=== PATIENT | male | born 1950 | race Caucasian/White ===

== ENCOUNTER 2018-06-06 08:36 | Inpatient (IN) ==
--- NOTE | 2018-06-06 08:54 | ED ---
HPI General Chief Complaint: Respiratory Symptoms Stated Complaint: Resp Emergent Time Seen by Provider: 06/06/18 08:48 Source: patient and EMS Mode of arrival: EMS Limitations: no limitations History of Present Illness 68-year-old male patient with history of COPD, CHF, Lung cancer with right pleural effusion in the past, has a port,hypertension, previous intubation for respiratory distress, presents to the ER today for severe respiratory distress, had called EMS, and EMS found him tripoding with saturations of 76%. They gave him Solu-Medrol, nebulizers, and put him on BiPAP, gave him 1 dose of Lasix 40 IV. By the time he got to the ER, he reports feeling better. He has not been having fevers, or other symptoms. Related Data Home Medications Medication Instructions Recorded Confirmed Novolog Flexpen U-100 Insulin See Protocol SUB-Q PRN PRN 06/06/18 06/06/18 aspirin 325 mg PO DAILY 06/06/18 06/06/18 bumetanide 1 mg PO BID 06/06/18 06/06/18 calcitriol 0.5 mcg PO DAILY 06/06/18 06/06/18 febuxostat [Uloric] 80 mg PO DAILY 06/06/18 06/06/18 lorazepam 0.5 mg BUCCAL DAILY PRN 06/06/18 06/06/18 sennosides [senna] 8.6 mg PO BID PRN 06/06/18 06/06/18 spironolactone 50 mg PO DAILY 06/06/18 06/06/18 Allergies Allergy/AdvReac Type Severity Reaction Status Date / Time iodine Allergy Intermediate HIVES Unverified 05/11/17 23:51 potassium iodide Allergy Intermediate HIVES Unverified 05/11/17 23:51 povidone-iodine Allergy Intermediate HIVES Unverified 05/11/17 23:51 sodium iodide Allergy Intermediate HIVES Unverified 05/11/17 23:51 sodium iodide Allergy Intermediate HIVES Unverified 05/11/17 23:51 penicillin G Allergy Unknown Hives Unverified 05/11/17 23:51 Review of Systems ROS: all other systems reviewed are negative PMFSH History History Provided By: Patient Medical History Medical History COPD (chronic obstructive pulmonary disease) (Acute) Chest tube in place (Acute) Diabetes (Acute) Endotracheally intubated (Acute) Heart attack (Acute) Lung cancer (Acute) Social History Social History Substance History: Past History Second Hand Smoke Exposure: No Smoking Status: Former smoker Tobacco Type: Cigarettes How Often Do You Have a Drink Containing Alcohol: Never Recent Travel in [facility] within the Last 8 Weeks: No Recent Out of Country Travel within the Last 8 Weeks: No Exam Narrative Exam Narrative: GENERAL: Well-developed elderly white male patient currently in moderate Respiratory distress. Awake and alert and oriented 3. SKIN: Focused skin assessment warm/dry. HEAD: Atraumatic. Normocephalic. EYES: Pupils equal and round. No scleral icterus. No injection or drainage. ENT: No nasal bleeding or discharge. Mucous membranes pink and moist. NECK: Trachea midline. Positive JVD. CARDIOVASCULAR: Regular rate and rhythm. No murmur appreciated. RESPIRATORY: Moderate accessory muscle use. Decreased throughout bilaterally. Breath sounds equal bilaterally. GASTROINTESTINAL: Abdomen soft, non-tender, nondistended. Hepatic and splenic margins not palpable. MUSCULOSKELETAL: No obvious deformities. No clubbing. No cyanosis. The edema of the legs all the way up to the thighs, lower leg erythema and chronic venous stasis discoloration. NEUROLOGICAL: Awake and alert. No obvious cranial nerve deficits. Motor grossly within normal limits. Normal speech. PSYCHIATRIC: Appropriate mood and affect; insight and judgment normal. Course Initial Documented Vital Signs Temperature 99.1 F 06/06/18 08:42 Pulse Rate 105 H 06/06/18 08:42 Respiratory Rate 28 H 06/06/18 08:42 Blood Pressure 155/73 H 06/06/18 08:42 Pulse Oximetry 96 06/06/18 08:42 Last Documented Vital Signs Temperature 99.2 F 06/06/18 08:52 Pulse Rate 102 H 06/06/18 09:20 Respiratory Rate 26 H 06/06/18 09:20 Blood Pressure 177/104 H 06/06/18 09:20 Pulse Oximetry 91 L 06/06/18 09:20 Medical Decision Making MDM Narrative Medical decision making narrative: EKG shows tachycardia, likely secondary to the respiratory distress. He is feeling improved on arrival in the ER nitroglycerin was given in the ER, felt much better after that, saturations are better. He is on BiPAP in the ER. Chest x-ray shows a right-sided pleural effusion and pulmonary edema. At this point, my plan would be to admit him for further treatment for CHF exacerbation as well as poor pulmonary edema. Case is discussed with Dr. Germain who states he knows the patient well, states that he was supposed to be on hospice. I have discussed the fact that he was supposed to be on hospice with the patient and he states that his does not want own home on hospice. At this point, my plan would be to admit him to Dr. Germain., Who is agreeable to the admission. Medical Screen Exam Complete: Yes Emergency Medical Condition: Yes Differential Diagnosis Differential Diagnosis: CHF exacerbation versus pneumonia versus COPD exacerbation versus dysrhythmias Lab Data Lab results reviewed: Yes I reviewed the patient's lab results. Result diagrams: 06/06/18 08:57 06/06/18 08:57 Lab Results 06/06/18 06/06/18 Range/Units 08:57 08:57 WBC 11.1 H (4.0-11.0) th/mm3 RBC 3.50 L (4.50-5.90) mil/mm3 Hgb 9.0 L (13.0-17.0) gm/dL Hct 29.8 L (39.0-51.0) % MCV 85.0 (80.0-100.0) fL MCH 25.7 L (27.0-34.0) pg MCHC 30.2 L (32.0-36.0) % RDW 16.0 (11.6-17.2) % Plt Count 226 (150-450) th/mm3 MPV 7.6 (7.0-11.0) fL Neut % (Auto) 79.4 H (16.0-70.0) % Lymph % (Auto) 10.1 (9.0-44.0) % Mcdonald % (Auto) 9.8 H (0.0-8.0) % Eos % (Auto) 0.4 (0.0-4.0) % Baso % (Auto) 0.3 (0.0-2.0) % Neut # (Auto) 8.8 H (1.8-7.7) th/mm3 Lymph # (Auto) 1.1 (1.0-4.8) th/mm3 Mcdonald # (Auto) 1.1 H (0.0-0.9) th/mm3 Eos # (Auto) 0.0 (0.0-0.4) th/mm3 Baso # (Auto) 0.0 (0.0-0.2) th/mm3 WBC Differential . Differential Comment Auto diff final Sodium 140 (136-145) meq/L Potassium 4.5 (3.5-5.1) meq/L Chloride 87 L (98-107) meq/L Carbon Dioxide Greater than 45.0 H (21.0-32.0) meq/L Anion Gap 8 (5-15) meq/L BUN 20 H (7-18) mg/dL Creatinine 0.98 (0.60-1.30) mg/dL Estimated GFR 76 L (>89) mL/min Random Glucose 152 H (74-106) mg/dL Calcium 9.7 (8.5-10.1) mg/dL Total Bilirubin 0.6 (0.2-1.0) mg/dL AST 22 (15-37) U/L ALT 14 (12-78) U/L Alkaline Phosphatase 55 (45-117) U/L Troponin I Less than 0.02 L (0.02-0.05) ng/mL Total Protein 7.5 (6.4-8.2) g/dL Albumin 2.6 L (3.4-5.0) g/dL Imaging Data Attestation: I personally reviewed and interpreted this imaging study as follows : Radiologist's impression: Chest X-Ray 06/06/18 08:48 CONCLUSION: Right lung airspace disease with underlying vascular congestion and small to moderate pleural effusion ECG Data Attestation: I personally reviewed and interpreted this ECG as follows: Interpretation: EKG shows sinus tachycardia at a rate of 100 bpm. There are some T-wave inversions notable in 3. No acute ST elevations. Discharge Plan Discharge Details Anticipated Discharge Date: 06/06/18 Physicians Team ED Provider: Savi Reece Primary Care Provider: UNKNOWN, Rxs /Orders / Referrals /Forms Prescriptions: No Action sennosides [senna] 8.6 mg Tablet 8.6 mg PO BID PRN (Reason: Constipation) RF: 0 aspirin 325 mg Tablet 325 mg PO DAILY RF: 0 lorazepam 0.5 mg Tablet 0.5 mg BUCCAL DAILY PRN (Reason: Anxiety) RF: 0 bumetanide 1 mg Tablet 1 mg PO BID RF: 0 calcitriol 0.25 mcg Capsule 0.5 mcg PO DAILY RF: 0 spironolactone 50 mg Tablet 50 mg PO DAILY RF: 0 febuxostat [Uloric] 80 mg Tablet 80 mg PO DAILY RF: 0 Novolog Flexpen U-100 Insulin auto-injector Sub-Q PRN PRN (Reason: Glucose) RF: 0 Discharge Interventions Interventions: Vital Signs Last Done: 06/06/18 09:20 Status ED Status: Admitted Patient
--- NOTE | 2018-06-06 09:15 | XR ---
EXAM DATE: 06/06/2018 9:09 AM EDT AGE/SEX: 68 years / Male INDICATIONS: Short of breath with wheezing. CLINICAL DATA: This is the patient's initial encounter. Patient reports that signs and symptoms have been present for 1 day and indicates a pain score of 0/10. MEDICAL/SURGICAL HISTORY: Diabetes. Hypertension. Chronic obstructive pulmonary disease. None . COMPARISON: [facility] [place]. . FINDINGS: Diffuse airspace disease with underlying vascular congestion and pleural effusion are noted within th e right hemithorax. Left lung is relatively clear. Heart remains normal in size. CONCLUSION: Right lung airspace disease with underlying vascular congestion and small to moderate pleural effusio n Electronically signed by: Marco Gibson MD 06/06/2018 9:14 AM EDT
[2018-06-06 09:24] LABS: Baso % (Auto) 0.3 % (0.0-2.0); Eos % (Auto) 0.4 % (0.0-4.0); Hematocrit 29.8 % (39.0-51.0); Lymph # (Auto) 1.1 th/mm3 (1.0-4.8); Lymph % (Auto) 10.1 % (9.0-44.0); Mean Corpuscular Hemoglobin 25.7 pg (27.0-34.0); Mean Platelet Volume 7.6 fL (7.0-11.0); Mono # (Auto) 1.1 th/mm3 (0.0-0.9); Mono % (Auto) 9.8 % (0.0-8.0); Neut # (Auto) 8.8 th/mm3 (1.8-7.7); Neut % (Auto) 79.4 % (16.0-70.0); Platelet Count 226 th/mm3 (150-450); White Blood Count 11.1 th/mm3 (4.0-11.0)
[2018-06-06 09:31] LABS: Mean Corpuscular HGB Conc 30.2 % (32.0-36.0)
[2018-06-06 09:50] LABS: Alanine Aminotransferase 14 U/L (12-78); Alkaline Phosphatase 55 U/L (45-117); Total Protein 7.5 g/dL (6.4-8.2)
[2018-06-06 09:55] LABS: Albumin 2.6 g/dL (3.4-5.0); Anion Gap 8 meq/L (5-15); Aspartate Aminotransferase 22 U/L (15-37); Blood Urea Nitrogen 20 mg/dL (7-18); Calcium 9.7 mg/dL (8.5-10.1); Chloride 87 meq/L (98-107); Glomerular Filtration Rate 76 mL/min (>89); Glucose,Random 152 mg/dL (74-106); Potassium 4.5 meq/L (3.5-5.1); Sodium 140 meq/L (136-145)
[2018-06-06] MEDS ORDERED: Bisacodyl 10 MG Supp RECTAL PRN (10:52)
[2018-06-06] MEDS ORDERED: Dextrose 50% in Water 50 ML Vial IV.PUSH PRN (10:56)
[2018-06-06 13:19] LABS: ABG Base Excess 21.4 mmol/L (-2-2); ABG PCO2 94 mmHg (38-42); ABG PO2 74 mmHG (61-120)
[2018-06-06] MEDS ORDERED: Vancomycin Consult Pharmacy OTHER PRN (16:35)
[2018-06-06] MEDS ORDERED: hydrALAZINE HCl Inj 20 MG/ML Vial IV.PUSH PRN (16:41)
--- NOTE | 2018-06-06 16:49 | P.HPIM ---
History of Present Illness Primary Care Physician: No Primary Care Physician History of Present Illness: 68-year-old male with a history of COPD, CHF, CKD, diabetes mellitus, hypertension, non-small cell lung carcinoma with chronic right-sided malignant pleural effusion with Pleurx catheter in place who presents with a 2 day history of progressively worsening shortness of breath, chills. History is limited by shortness of breath. Patient reports chronic chest pain both substernal and right flank. Patient also reports 2 day history of right anterior knee pain worse with movement. Patient has marketed bilateral lower extremity swelling with venous stasis, however says this is chronic for him. He spends most of his time in a chair. Inpatient Certification: I certify that the inpatient services were ordered in accordance with Medicare regulations governing the order. This includes certification that hospital inpatient services are reasonable and necessary and in the case of services not specified as inpatient-only under 42 CFR 419.22(n), that they are appropriately provided as inpatient services in accordance to with the 2-midnight benchmark under 43 CFR 412.3(e) Estimated Total Length of Stay (Days): 2 Plans for Post Hospital Care: Not yet determined Review of Systems All other systems reviewed negative except as stated in HPI PMFSH - History History Provided By: Patient - Medical History Medical History: Medical History (Last Reviewed 06/06/18 @ 08:52 by Savi Reece MD) COPD (chronic obstructive pulmonary disease) Chest tube in place Diabetes Endotracheally intubated Heart attack Lung cancer - Surgical History Surgical History: Surgical History (Last Updated 06/06/18 @ 16:49 by Solis Germain MD) H/O cystoscopy History of lung biopsy - Family History Family History: Family History (Last Updated 06/06/18 @ 16:49 by Solis Germain MD) Father Cancer Mother Breast cancer - Tobacco History Second Hand Smoke Exposure: No Tobacco Use In Past 30 Days: No Smoking Status: Former smoker Tobacco Type: Cigarettes - Alcohol History How Often Do You Have a Drink Containing Alcohol: Never - Substance Use History Substance History: Past History - Travel History Recent Travel in the [place] Within the Last 8 Weeks: No Recent Travel Out of the Country Within the Last 8 Weeks: No - Immunization History Tetanus Immunization: Unsure Hx Influenza Vaccine This Season: No Medications and Allergies Active Medications: Active Medications Al Hydroxide/Mg Hydroxide (Milk Of Magnidalia Liq) 30 ml PO Q12H PRN PRN Reason: Mild Constipation Albuterol (Albuterol Neb (Prn)) 2.5 mg NEB Q2HR NEB PRN PRN Reason: SHORTNESS OF BREATH Albuterol (Duoneb Neb (Feroz)) 1 ampul NEB Q6HR NEB [facility] Last Admin: 06/06/18 16:18 Dose: 1 ampul Aspirin (Aspirin) 325 mg PO DAILY [facility] Bisacodyl (Dulcolax Supp) 10 mg RECTAL DAILY PRN PRN Reason: SEVERE CONSITIPATION Bumetanide (Bumex) 1 mg PO BID [facility] Calcitriol (Rocaltrol) 0.5 mcg PO DAILY [facility] Dextrose (D50w Vial) 50 ml IV.PUSH UNSCH PRN PRN Reason: PER HYPOGLYCEMIA PROTOCOL Glucagon (Glucagon Inj) 1 mg OTHER PRN PRN PRN Reason: for Hypoglycemia Protocol Hydralazine HCl (Apresoline Inj) 10 mg IV.PUSH Q30M PRN PRN Reason: SBP>160, DBP>90 Cefepime HCl 2,000 mg/ Sodium (Chloride) 100 mls @ 200 mls/hr IV.SIG Q8H [facility] Insulin Aspart (Novolog Insulin Correctional Sugar Inj) 0 unit SQ ACHS FEROZ; Protocol Lactulose (Lactulose Liq) 30 ml PO DAILY PRN PRN Reason: SEVERE CONSITIPATION Methylprednisolone Sodium Succinate (Solumedrol Inj) 40 mg IV.PUSH Q8HR [facility] Patient Own Medication ( Febuxostat [Uloric] 80 Mg) 0 each PO DAILY [facility] Pharmacy Profile Note (Vancomycin Consult Pharmacy) 1 each OTHER UNSCH PRN PRN Reason: Pharmacy to dose Sennosides (Senokot) 17.2 mg PO Q12H PRN PRN Reason: Moderate Constipation Sodium Chloride (Ns Flush) 2 ml IV.FLUSH BID [facility] Sodium Chloride (Ns Flush) 2 ml IV.FLUSH PRN PRN PRN Reason: FLUSH AFTER USING IV ACCESS Spironolactone (Aldactone) 50 mg PO DAILY [facility] Allergies Allergy/AdvReac Type Severity Reaction Status Date / Time iodine Allergy Intermediate HIVES Unverified 05/11/17 23:51 potassium iodide Allergy Intermediate HIVES Unverified 05/11/17 23:51 povidone-iodine Allergy Intermediate HIVES Unverified 05/11/17 23:51 sodium iodide Allergy Intermediate HIVES Unverified 05/11/17 23:51 sodium iodide Allergy Intermediate HIVES Unverified 05/11/17 23:51 penicillin G Allergy Unknown Hives Unverified 05/11/17 23:51 Home Medications Medication Instructions Recorded Confirmed Type Novolog Flexpen U-100 Insulin See Protocol SUB-Q PRN PRN 06/06/18 06/06/18 History aspirin 325 mg PO DAILY 06/06/18 06/06/18 History bumetanide 1 mg PO BID 06/06/18 06/06/18 History calcitriol 0.5 mcg PO DAILY 06/06/18 06/06/18 History febuxostat [Uloric] 80 mg PO DAILY 06/06/18 06/06/18 History lorazepam 0.5 mg BUCCAL DAILY PRN 06/06/18 06/06/18 History sennosides [senna] 8.6 mg PO BID PRN 06/06/18 06/06/18 History spironolactone 50 mg PO DAILY 06/06/18 06/06/18 History Exam Vital signs: Vital Signs 06/06/18 08:42 06/06/18 08:52 06/06/18 09:07 Temperature 99.1 F 99.2 F Pulse Rate 105 H 104 H Respiratory Rate 28 H 26 H Blood Pressure 155/73 H 155/73 H Pulse Oximetry 96 98 92 L 06/06/18 09:17 06/06/18 09:20 06/06/18 10:58 Temperature Pulse Rate 102 H 103 H Respiratory Rate 26 H 18 Blood Pressure 177/104 H 151/76 H Pulse Oximetry 95 91 L 93 L 06/06/18 13:16 06/06/18 13:24 06/06/18 16:20 Temperature 99.2 F Pulse Rate 106 H 114 H Respiratory Rate 18 28 H Blood Pressure 155/74 H Pulse Oximetry 94 L 97 06/06/18 16:22 Temperature Pulse Rate Respiratory Rate Blood Pressure Pulse Oximetry 90 L Intake & Output 06/05/18 06/06/18 06/06/18 18:59 06:59 18:59 Weight 141.067 kg Narrative: GENERAL: Patient sitting up in chair. Appears short of breath. SKIN: Warm and dry. HEAD: Atraumatic. Normocephalic. EYES: Pupils equal and round. No scleral icterus. No injection or drainage. ENT: No nasal bleeding or discharge. Mucous membranes pink and moist. NECK: Trachea midline. No JVD. CARDIOVASCULAR: Regular rate and rhythm. RESPIRATORY: Obese, with distant breath sounds. That said, decreased breath sounds right lung. Pleurx catheter without surrounding erythema in right chest GASTROINTESTINAL: Abdomen soft, non-tender, nondistended. Hepatic and splenic margins not palpable. MUSCULOSKELETAL: Extremities without clubbing, cyanosis, or edema. No obvious deformities. NEUROLOGICAL: Awake and alert. No obvious cranial nerve deficits. Motor grossly within normal limits. Five out of 5 muscle strength in the arms and legs. Normal speech. PSYCHIATRIC: Appropriate mood and affect; insight and judgment normal. Results - Labs CBC & Chem 7: 06/06/18 08:57 06/06/18 08:57 Labs: Short CBC 06/06/18 Range/Units 08:57 WBC 11.1 H (4.0-11.0) th/mm3 Hgb 9.0 L (13.0-17.0) gm/dL Hct 29.8 L (39.0-51.0) % Plt Count 226 (150-450) th/mm3 BMP 06/06/18 08:57 Sodium 140 Potassium 4.5 Chloride 87 L Carbon Dioxide Greater than 45.0 H BUN 20 H Creatinine 0.98 Calcium 9.7 Cardiac Enzymes 06/06/18 Range/Units 08:57 Troponin I Less than 0.02 L (0.02-0.05) ng/mL Liver Function 06/06/18 Range/Units 08:57 Total Bilirubin 0.6 (0.2-1.0) mg/dL AST 22 (15-37) U/L ALT 14 (12-78) U/L Alkaline Phosphatase 55 (45-117) U/L Albumin 2.6 L (3.4-5.0) g/dL - Imaging Impressions Chest X-Ray 06/06/18 08:48 CONCLUSION: Right lung airspace disease with underlying vascular congestion and small to moderate pleural effusion Caprini VTE Risk Assessment Caprini VTE Risk Assessment: Moderate/High Risk (score >= 2) Caprini Risk Assessment Model: Point Value = 1 Point Value = 2 Point Value = 3 Point Value = 5 Age 41-60 Minor surgery BMI > 25 kg/m2 Swollen legs Varicose veins or History of unexplained or recurrent spontaneous Oral contraceptives or hormone replacement Sepsis (< 1 month) Serious lung disease, including pneumonia (< 1 month) Abnormal pulmonary function Acute myocardial infarction Congestive heart failure (< 1 month) History of inflammatory bowel disease Medical patient at bed rest Age 61-74 Arthroscopic surgery Major open surgery (> 45 min) Laparoscopic surgery (> 45 min) Malignancy Confined to bed (> 72 hours) Immobilizing plaster cast Central venous access Age >= 75 History of VTE Family history of VTE Factor V Leiden Prothrombin [id number] Lupus anticoagulant Anticardiolipin antibodies Elevated serum homocysteine Heparin-induced thrombocytopenia Other congenital or acquired thrombophilia Stroke (< 1 month) Elective arthroplasty Hip, pelvis, or leg fracture Acute spinal cord injury (< 1 month) Prophylaxis Regimen: Total Risk Factor Score Risk Level Prophylaxis Regimen 0-1 Low Early ambulation 2 Moderate Order ONE of the following: *Sequential Compression Device (SCD) *Heparin 5000 units SQ BID 3-4 Higher Order ONE of the following medications: *Heparin 5000 units SQ TID *Enoxaparin/Lovenox 40 mg SQ daily (WT < 150 kg, CrCl > 30 mL/min) *Enoxaparin/Lovenox 30 mg SQ daily (WT < 150 kg, CrCl > 10-29 mL/min) *Enoxaparin/Lovenox 30 mg SQ BID (WT < 150 kg, CrCl > 30 mL/min) AND/OR *Sequential Compression Device (SCD) 5 or more Highest Order ONE of the following medications: *Heparin 5000 units SQ TID (Preferred with Epidurals) *Enoxaparin/Lovenox 40 mg SQ daily (WT < 150 kg, CrCl > 30 mL/min) *Enoxaparin/Lovenox 30 mg SQ daily (WT < 150 kg, CrCl > 10-29 mL/min) *Enoxaparin/Lovenox 30 mg SQ BID (WT < 150 kg, CrCl > 30 mL/min) AND *Sequential Compression Device (SCD) Assessment and Plan - Plan //NSCLC //Right-sided malignant pleural effusion with indwelling Pleurx catheter. //COPD exacerbation //Hypercapnic respiratory failure //YING //Possible healthcare associated pneumonia. = ABG with PCO2 in the 90s. = Right-sided malignant effusion noted on chest x-ray. = Solu-Medrol, duo nebs, incentive spirometry. = We will order for drainage of right-sided pleural effusion Via Pleurx catheter with fluid analysis. Patient does have tachycardia, tachypnea, borderline elevated white blood cell count will start on broad-spectrum antibiotics. Consult oncology and pulmonary. //Bilateral lower extremity edema with venous stasis cellulitis. BNP not elevated. Elevate the legs. Patient instructed. //NSCLC = patient follows with hospice, however is not "on" hospice = oncology consulted. //DM Dm diet, ISS /HTN. Blood pressure acceptable. Will order hydralazine as needed. //Right knee pain. Appears musculoskeletal. Imaging ordered and pending. //CKD.. Renal function acceptable. //Please see other medical record for patient with first name "Armen". Recent admission last month. Prophylaxis. Heparin. Discussed Condition With: Patient, nurse, ED physician.
--- NOTE | 2018-06-06 17:28 | XR ---
EXAM DATE: 06/06/2018 5:08 PM EDT AGE/SEX: 68 years / Male INDICATIONS: Pain. CLINICAL DATA: This is the patient's subsequent encounter. Patient reports that signs and symptoms h ave been present for 1 day and indicates a pain score of 2/10. MEDICAL/SURGICAL HISTORY: . Diabetes. Hypertension. Chronic obstructive pulmonary disease None . [place] [facility] [place] 04/11/[place]. . FINDINGS: Mild soft tissue swelling mild degenerative changes. There is loss of the collagen the medial compart ment. Trace joint effusion is evident. Fracture is not appreciated. Moderate vascular calcifications. CONCLUSION: Degenerative changes with trace joint effusion. No fracture. Sign report Electronically signed by: Marcel Leal MD 06/06/2018 5:27 PM EDT
[2018-06-06] MEDS: Insulin NovoLOG Aspart Correctional Sugar Inj SQ SCH ×3 (17:33→23:17)
--- NOTE | 2018-06-06 20:04 | ECG ---
Date Performed: 06/06/2018 Time Performed: 08:47:45 PTAGE: 68 years EKG: SINUS TACHYCARDIA POSSIBLE RIGHT VENTRICULAR CONDUCTION DELAY INFERIOR MYOCARDIAL INFARCTIO N Inferior T waves are new when compared to previous tracing. Clinical correlation is recommended ABN ORMAL ECG PREVIOUS TRACING : 04/11/2015 17.14 DOCTOR: Andrew Hodge Interpretating Date/Time 06/06/2018 20:03:06
[2018-06-06] MEDS: Vancomycin Inj 1,500 MG in Sodium Chlor 0.9% Inj 500 ML IV.SIG SCH (20:57)
[2018-06-06] MEDS: Heparin - SQ 10,000 UNITS/ML Vial SQ SCH (21:08)
[2018-06-06] MEDS: MethylPREDNISolone Sod Succinate Inj 40 MG/ML Vial IV.PUSH SCH ×2 (21:08→23:19)
[2018-06-06] MEDS: Budesonide-Formoterol 160/4.5 MCG 6 GM Inhaler INH SCH (21:08)
--- NOTE | 2018-06-06 23:15 | MB ---
cc: Kim Hunt MD DATE: 06/06/2018 REASON FOR CONSULTATION: Respiratory distress and pleural effusions. HISTORY OF PRESENT ILLNESS: This is a 68-year-old obese white male with a history for a non-small cell lung cancer, status post recurrent effusion on the right with PleurX catheter placement, who was admitted with progressive shortness of breath of 2-3 days' duration. The patient also had some fevers and chills. He had increased leg swelling and some upper abdominal and lower chest pains. The patient was seen in the ER. A chest x-ray was done which showed a moderate sized right effusion. He was then admitted and placed on oxygen via nasal cannula. He also has some knee pain and has had trouble ambulating and complains of cough with expectoration but no nausea or vomiting. PAST MEDICAL HISTORY: Past history has included diabetes mellitus, hypertension, COPD, chronic kidney disease, CHF, non-small cell lung CA, history of recurrent thoracentesis for a right effusion and a history of obesity. He has had respiratory failure in the past and has a chest catheter in place on the right side. He has had a lung biopsy and a cystoscopy in the past. HABITS: The patient smoked 1-2 packs per day for over 40 years. No significant alcohol intake. ALLERGIES: NO DRUG ALLERGIES ARE LISTED. FAMILY HISTORY: Essentially noncontributory. REVIEW OF SYSTEMS: The patient is unable to ambulate. He has leg swelling. He has joint pains. He has dizzy attacks. He has epigastric distress and urinary frequency and complains of a skin rash of the lower extremities and sleep apnea. PHYSICAL EXAMINATION: GENERAL: This is a very obese, elderly white male who is alert. Face is plethoric. He has 3+ leg edema. VITAL SIGNS: Blood pressure 140/80, pulse 75, respirations 16, temperature 98.2. HEENT: Head is normocephalic. Pupils are reactive and equal. Tongue is moist. Throat is injected. Nasal mucosa is clear. NECK: Supple. No bruits, thyroid enlargement or lymphadenopathy. CHEST: Distant breath sounds with crackles at the lung bases with diffuse wheezes throughout both lung farmer. HEART: The heart sounds are irregular. S1 and S2. The right chest has diminished breath sounds and a chest catheter is in place in the lateral axillary area. ABDOMEN: Very obese with no tenderness. Bowel sounds are active. No organomegaly. EXTREMITIES: Edema 3+ with pigmentation of the skin and stasis dermatitis and some tenderness of the lower extremities below the knee. There is a slight deformity of the right knee. The patient does move his extremities well. There is no calf tenderness noted. IMPRESSION: 1. Chronic obstructive pulmonary disease with acute exacerbation. 2. Probable right basilar pneumonia. 3. History of non-small cell lung carcinoma with recurrent right effusion. 4. Degenerative arthritis. 5. Obstructive sleep apnea. PLAN: The patient will be maintained on antibiotic coverage including cefepime 2 grams IV q.8 hours and also vancomycin 1 gram daily. He will be placed on Solu-Medrol 40 mg IV q.8 hours, nebulized DuoNeb solution every 4 hours, oxygen nasal cannula at 4 liters, BiPAP at night set at 15/5 cm and 28%. Diuresis to be continued with Bumex 1 mg b.i.d. The PleurX catheter will be drained by radiology on a weekly basis. Thank you, Dr. Germain, for this consultation. VPatrick Hunt MD VJD/rachel , 07:41 PM , 07:54 PM
[2018-06-07 04:22] LABS: Baso % (Auto) 0.1 % (0.0-2.0); Hematocrit 28.3 % (39.0-51.0); Hemoglobin 8.9 gm/dL (13.0-17.0); Lymph # (Auto) 0.5 th/mm3 (1.0-4.8); Lymph % (Auto) 5.3 % (9.0-44.0); Mean Corpuscular HGB Conc 31.3 % (32.0-36.0); Mean Corpuscular Hemoglobin 26.2 pg (27.0-34.0); Mean Corpuscular Volume 83.6 fL (80.0-100.0); Mean Platelet Volume 7.8 fL (7.0-11.0); Mono # (Auto) 0.3 th/mm3 (0.0-0.9); Mono % (Auto) 3.3 % (0.0-8.0); Neut # (Auto) 8.5 th/mm3 (1.8-7.7); Neut % (Auto) 91.3 % (16.0-70.0); Platelet Count 222 th/mm3 (150-450); Red Blood Count 3.39 mil/mm3 (4.50-5.90); Red Cell Distribution Width 15.8 % (11.6-17.2); White Blood Count 9.3 th/mm3 (4.0-11.0)
[2018-06-07 04:39] LABS: Alanine Aminotransferase 17 U/L (12-78); Albumin 2.6 g/dL (3.4-5.0); Alkaline Phosphatase 54 U/L (45-117); Anion Gap 7 meq/L (5-15); Aspartate Aminotransferase 15 U/L (15-37); Blood Urea Nitrogen 30 mg/dL (7-18); Calcium 9.4 mg/dL (8.5-10.1); Chloride 86 meq/L (98-107); Glomerular Filtration Rate 57 mL/min (>89); Glucose,Random 260 mg/dL (74-106); Potassium 4.4 meq/L (3.5-5.1); Sodium 138 meq/L (136-145); Total Protein 7.6 g/dL (6.4-8.2)
[2018-06-07] MEDS: MethylPREDNISolone Sod Succinate Inj 40 MG/ML Vial IV.PUSH SCH ×2 (06:29→13:18)
--- NOTE | 2018-06-07 08:02 | P.CON ---
History of Present Illness Service: Hematology/oncology Consult date: 06/07/18 Requesting Physician: Solis Germain Reason for Consult: Metastatic adenocarcinoma of the lung. Primary Care Provider: No Primary Care Physician Chief Complaint: Difficulty breathing History of Present Illness: Mr. Marquez is a very pleasant 68-year-old man who is known to me from previous hospital admissions. The patient was diagnosed earlier this summer with metastatic adenocarcinoma of the lung, the primary tumors involve the right lung with extensive pleural-based metastatic deposits. He had recurrent large volume pleural effusions and for this he eventually underwent Pleurx catheter placement on the right side. The patient's tumor has 0% PDL-1 expression. Given his poor overall ECOG performance status and multiple medical comorbid conditions including diabetes, CHF, chronic kidney disease he was advised comfort oriented care/palliative care. After his most recent hospitalization in April 2018 he was discharged home with hospice. The patient reports having been doing reasonably well at home over the past few weeks, he tells me he has been able to ambulate around the house, he tells me his pain is reasonably well-controlled and had been reconsidering his decision to pursue hospice. He tells me he thinks a great deal about pursuing disease directed therapy including systemic chemotherapy. The patient presented to [facility] on 06/06/2018 with complaints of progressive shortness of breath. He was scheduled to meet with me at my [facility] on 06/06/2018 but was unable to keep that appointment. He tells me he made that appointment to discuss therapeutic interventions. Subjectively; at this time the patient reports his breathing is improved, he has been on corticosteroids and empiric antibiotic therapy. I have been asked to see the patient in consultation to discuss treatment interventions. Review of Systems Constitutional: Reports daytime sleepiness, Reports fatigue, Reports lack of energy, Reports weakness, Reports weight gain, Denies anorexia, Denies chills Eyes: Denies change in vision, Denies double vision Ears, Nose, Mouth, and Throat: Reports poor balance, Denies abnormal hearing Cardiovascular: Reports chest pain, Reports chest pain at rest (Right-sided pleuritic chest pain.), Reports leg swelling, Reports shortness of breath with activity, Reports shortness of breath when lying down, Denies leg sores Respiratory: Reports cough, Reports pain with cough, Reports shortness of breath , Reports shortness of breath with activity, Reports snoring, Reports wheezing, Denies coughing up blood Gastrointestinal: Denies abdominal pain, Denies bright, red blood in stools, Denies vomiting Genitourinary: Denies blood in urine Musculoskeletal: Reports back pain, Denies abnormal walking Skin/Breast: Denies acne Neurologic: Denies abnormal hearing Psychiatric: Denies abnormal sleep pattern Endocrine: Denies cold intolerance Hematologic/Lymphatic: Denies easy bleeding Allergic/Immunologic: Denies GI upset with certain foods PMFSH - History History Provided By: Patient - Medical History Medical History: Medical History (Last Updated 06/07/18 @ 07:56 by Khanh Reeves MD) COPD (chronic obstructive pulmonary disease) Chest tube in place Diabetes Endotracheally intubated Heart attack Metastatic adenocarcinoma to lung Morbid obesity - Surgical History Surgical History: Surgical History (Last Reviewed 06/07/18 @ 07:56 by Khanh Reeves MD) H/O cystoscopy History of lung biopsy - Family History Family History: Family History (Last Reviewed 06/07/18 @ 07:56 by Khanh Reeves MD) Father Cancer Mother Breast cancer - Social History I have reviewed the patient's Social History: Yes - Tobacco History Second Hand Smoke Exposure: No Tobacco Use In Past 30 Days: No Smoking Status: Former smoker Tobacco Type: Cigarettes - Alcohol History How Often Do You Have a Drink Containing Alcohol: Never - Substance Use History Substance History: Past History - Travel History Recent Travel in the [place] Within the Last 8 Weeks: No Recent Travel Out of the Country Within the Last 8 Weeks: No - Immunization History Tetanus Immunization: Unsure Hx Influenza Vaccine This Season: No Medications and Allergies Active Medications: Active Medications Al Hydroxide/Mg Hydroxide (Milk Of Luna Erickson) 30 ml PO Q12H PRN PRN Reason: Mild Constipation Albuterol (Albuterol Neb (Prn)) 2.5 mg NEB Q2HR NEB PRN PRN Reason: SHORTNESS OF BREATH Last Admin: 06/07/18 01:39 Dose: 2.5 mg Albuterol (Duoneb Neb (Feroz)) 1 ampul NEB Q6HR NEB [facility] Last Admin: 06/07/18 03:25 Dose: 1 ampul Aspirin (Aspirin) 325 mg PO DAILY [facility] Bisacodyl (Dulcolax Supp) 10 mg RECTAL DAILY PRN PRN Reason: SEVERE CONSITIPATION Budesonide/Formoterol Fumarate (Symbicort 160/4.5 Mcg Inh) 2 puff INH BID [facility] Last Admin: 06/06/18 21:08 Dose: Not Given Bumetanide (Bumex) 1 mg PO BID [facility] Last Admin: 06/06/18 21:08 Dose: 1 mg Calcitriol (Rocaltrol) 0.5 mcg PO DAILY [facility] Dextrose (D50w Vial) 50 ml IV.PUSH UNSCH PRN PRN Reason: PER HYPOGLYCEMIA PROTOCOL Glucagon (Glucagon Inj) 1 mg OTHER PRN PRN PRN Reason: for Hypoglycemia Protocol Heparin Sodium (Porcine) (Heparin Inj) 5,000 units SQ Q12HR [facility] Last Admin: 06/06/18 21:08 Dose: 5,000 units Hydralazine HCl (Apresoline Inj) 10 mg IV.PUSH Q30M PRN PRN Reason: SBP>160, DBP>90 Cefepime HCl 2,000 mg/ Sodium (Chloride) 100 mls @ 200 mls/hr IV.SIG Q8H [facility] Last Infusion: 06/07/18 05:36 Dose: Infused Vancomycin HCl 1,500 mg/ (Sodium Chloride) 515 mls @ 250 mls/hr IV.SIG Q12H [facility] Last Infusion: 06/07/18 00:29 Dose: Infused Insulin Aspart (Novolog Insulin Correctional Sugar Inj) 0 unit SQ ACHS [facility]; Protocol Last Admin: 06/06/18 23:17 Dose: Not Given Lactulose (Lactulose Liq) 30 ml PO DAILY PRN PRN Reason: SEVERE CONSITIPATION Methylprednisolone Sodium Succinate (Solumedrol Inj) 40 mg IV.PUSH Q8HR [facility] Last Admin: 06/07/18 06:29 Dose: 40 mg Miscellaneous Information ([facility] Ordered Lab Info) 0 each OTHER ONCE ONE Stop: 06/08/18 08:46 Patient Own Medication ( Febuxostat [Uloric] 80 Mg) 0 each PO DAILY [facility] Pharmacy Profile Note (Vancomycin Consult Pharmacy) 1 each OTHER UNSCH PRN PRN Reason: Pharmacy to dose Sennosides (Senokot) 17.2 mg PO Q12H PRN PRN Reason: Moderate Constipation Sodium Chloride (Ns Flush) 2 ml IV.FLUSH BID [facility] Last Admin: 06/06/18 21:08 Dose: 2 ml Sodium Chloride (Ns Flush) 2 ml IV.FLUSH PRN PRN PRN Reason: FLUSH AFTER USING IV ACCESS Spironolactone (Aldactone) 50 mg PO DAILY [facility] Allergies Allergy/AdvReac Type Severity Reaction Status Date / Time iodine Allergy Intermediate HIVES Unverified 05/11/17 23:51 potassium iodide Allergy Intermediate HIVES Unverified 05/11/17 23:51 povidone-iodine Allergy Intermediate HIVES Unverified 05/11/17 23:51 sodium iodide Allergy Intermediate HIVES Unverified 05/11/17 23:51 sodium iodide Allergy Intermediate HIVES Unverified 05/11/17 23:51 penicillin G Allergy Unknown Hives Unverified 05/11/17 23:51 Home Medications Medication Instructions Recorded Confirmed Type Novolog Flexpen U-100 Insulin See Protocol SUB-Q PRN PRN 06/06/18 06/06/18 History aspirin 325 mg PO DAILY 06/06/18 06/06/18 History bumetanide 1 mg PO BID 06/06/18 06/06/18 History calcitriol 0.5 mcg PO DAILY 06/06/18 06/06/18 History febuxostat [Uloric] 80 mg PO DAILY 06/06/18 06/06/18 History lorazepam 0.5 mg BUCCAL DAILY PRN 06/06/18 06/06/18 History sennosides [senna] 8.6 mg PO BID PRN 06/06/18 06/06/18 History spironolactone 50 mg PO DAILY 06/06/18 06/06/18 History Physical Exam Vital signs: Vital Signs 06/06/18 08:42 06/06/18 08:52 06/06/18 09:07 Temperature 99.1 F 99.2 F Pulse Rate 105 H 104 H Respiratory Rate 28 H 26 H Blood Pressure 155/73 H 155/73 H Pulse Oximetry 96 98 92 L 06/06/18 09:17 06/06/18 09:20 06/06/18 10:58 Temperature Pulse Rate 102 H 103 H Respiratory Rate 26 H 18 Blood Pressure 177/104 H 151/76 H Pulse Oximetry 95 91 L 93 L 06/06/18 13:16 06/06/18 13:24 06/06/18 16:00 Temperature 99.2 F 99.1 F Pulse Rate 106 H 114 H Respiratory Rate 18 18 Blood Pressure 155/74 H 155/73 H Pulse Oximetry 94 L 97 97 06/06/18 16:20 06/06/18 16:22 06/06/18 19:00 Temperature Pulse Rate 114 H 106 H Respiratory Rate 28 H Blood Pressure Pulse Oximetry 90 L 06/06/18 20:00 06/06/18 20:25 06/06/18 20:30 Temperature 98.8 F Pulse Rate 100 H 104 H Respiratory Rate 22 14 Blood Pressure 142/70 H Pulse Oximetry 90 L 93 L 06/06/18 21:00 06/06/18 22:00 06/06/18 23:00 Temperature Pulse Rate 99 H 100 H 87 Respiratory Rate Blood Pressure Pulse Oximetry 06/07/18 00:00 06/07/18 01:00 06/07/18 01:36 Temperature 97.9 F Pulse Rate 86 86 Respiratory Rate 17 Blood Pressure 157/79 H Pulse Oximetry 98 97 06/07/18 01:37 06/07/18 02:00 06/07/18 03:00 Temperature Pulse Rate 70 76 62 Respiratory Rate 18 Blood Pressure Pulse Oximetry 06/07/18 03:25 06/07/18 04:00 06/07/18 05:00 Temperature 97.4 F L Pulse Rate 59 L 86 80 Respiratory Rate 15 20 Blood Pressure 145/89 H Pulse Oximetry 99 06/07/18 06:00 06/07/18 06:08 Temperature Pulse Rate 80 Respiratory Rate Blood Pressure Pulse Oximetry 98 Intake & Output 06/06/18 06/07/18 06/07/18 18:59 06:59 18:59 Intake Total 720 / 720 1385 / 1385 Output Total 700 / 700 500 / 500 Balance 885 / 885 Weight 141.067 kg 140 kg Intake: IV 665 / 665 Maxipime Inj 2,000 MG In NS Inj 190 / 190 100 ML @ 200 mls/hr IV.SIG Q8H [facility] Rx#:[id number] Vancomycin Inj 1,500 MG In NS 475 / 475 Inj 500 ML @ 250 mls/hr IV.SIG Q12H [facility] Rx#:[id number] Oral 720 / 720 720 / 720 Output: Urine 700 / 700 500 / 500 Other: # Bowel Movements 0 - Constitutional no acute distress - Routine HEENT Exam Head: Absent: normocephalic Eye: Present: EOMI, PERRL - Routine Neck Exam Present: supple. Absent: full ROM, JVD - Routine Respiratory Exam Present: diminished air movement (Over the right base. Pleurx catheter in place on the right side. Prolonged expiratory phase. Scattered rhonchi and crackles.). Absent: accessory muscle use - Routine Cardiovascular Exam Present: RRR, S1, S2. Absent: murmur, gallop, rubs, S3, S4 - Routine Abdominal Exam Present: soft. Absent: distended - Routine Extremities Exam Present: edema (Bilateral lower extremities with skin changes consistent with chronic venous stasis.) - Routine Skin Exam Present: intact - Routine Neurological Exam Present: alert, oriented X3, CN II-XII intact. Absent: sensory deficit, motor deficit - Detailed Neurological Exam: Coma Scale Eye Opening: Spontaneous - Routine Psychiatric Exam Present: normal affect Assessment and Plan - Plan Mr. Marquez is a 5-year-old man with a diagnosis of metastatic adenocarcinoma of lung primary, PDL 1 expression is 0%. He has extensive disease burden involving the right hemithorax with pleural-based metastases. He has recurrent pleural effusions as well. Overall his ECOG performance status is at best 3. He is a suboptimal candidate for aggressive disease directed systemic chemotherapy given the high risk of treatment-related adverse effects. I had in the past discussed disease directed therapy with the patient versus palliative/comfort oriented care including hospice. He had elected for hospice at the time of most recent discharge from the hospital. He tells me he is reconsidering his choices actively at this time. I have informed the patient that if he chooses to pursue systemic chemotherapy there would be significant risk including increased risk of infections, cytopenias as well as potentially limited benefits. If he chooses to pursue systemic chemotherapy I would advise transferring him to the oncology unit and treating him in the inpatient setting at least initially. The patient tells me he wishes to discuss his options again with his . He tells me he is leaning towards hospice but will make his final decision known to us later today. Recommendations: 1. Metastatic lung carcinoma: The patient is considering to pursue systemic therapy, should he wish to pursue systemic chemotherapy I would advise a modified dosing of carboplatin and Taxol. This can be delivered in the inpatient setting. He is not certain he wishes to pursue treatment at this time but will let us know. If he wishes to pursue comfort oriented care I would advise involving palliative care and hospice. For the time being continue supportive care with corticosteroids and empiric antibiotic therapy. Oncology will follow with you.
[2018-06-07] MEDS ORDERED: FEBUXOSTAT 80 MG PO SCH (09:00)
[2018-06-07] MEDS: Calcitriol 0.25 MCG Capsule PO SCH (09:16)
[2018-06-07] MEDS: Insulin NovoLOG Aspart Correctional Sugar Inj SQ SCH ×4 (09:16→21:35)
[2018-06-07] MEDS: Aspirin 325 MG Tablet PO SCH (09:16)
[2018-06-07] MEDS: Heparin - SQ 10,000 UNITS/ML Vial SQ SCH ×2 (09:16→21:37)
[2018-06-07] MEDS: Spironolactone 50 MG Tablet PO SCH (09:16)
[2018-06-07] MEDS: Vancomycin Inj 1,500 MG in Sodium Chlor 0.9% Inj 500 ML IV.SIG SCH (09:17)
[2018-06-07] MEDS: Budesonide-Formoterol 160/4.5 MCG 6 GM Inhaler INH SCH ×2 (09:17→21:37)
[2018-06-07] MEDS ORDERED: Insulin Detemir Inj 1,000 UNIT/10 ML Vial SQ ONE (13:00)
[2018-06-07] MEDS ORDERED: Vancomycin Consult Pharmacy OTHER SCH (15:00)
--- NOTE | 2018-06-07 16:02 | P.PNIM ---
Subjective Interval history: Patient says he is breathing a little better today. Reports shortness of breath somewhat improved. Denies any chest pain. Physical Exam Vital signs: Vital Signs 06/06/18 16:00 06/06/18 16:20 06/06/18 16:22 Temperature 99.1 F Pulse Rate 114 H 114 H Respiratory Rate 18 28 H Blood Pressure 155/73 H Pulse Oximetry 97 90 L 06/06/18 19:00 06/06/18 20:00 06/06/18 20:25 Temperature 98.8 F Pulse Rate 106 H 100 H Respiratory Rate 22 Blood Pressure 142/70 H Pulse Oximetry 90 L 93 L 06/06/18 20:30 06/06/18 21:00 06/06/18 22:00 Temperature Pulse Rate 104 H 99 H 100 H Respiratory Rate 14 Blood Pressure Pulse Oximetry 06/06/18 23:00 06/07/18 00:00 06/07/18 01:00 Temperature 97.9 F Pulse Rate 87 86 86 Respiratory Rate 17 Blood Pressure 157/79 H Pulse Oximetry 98 06/07/18 01:36 06/07/18 01:37 06/07/18 02:00 Temperature Pulse Rate 70 76 Respiratory Rate 18 Blood Pressure Pulse Oximetry 97 06/07/18 03:00 06/07/18 03:25 06/07/18 04:00 Temperature 97.4 F L Pulse Rate 62 59 L 86 Respiratory Rate 15 20 Blood Pressure 145/89 H Pulse Oximetry 99 06/07/18 05:00 06/07/18 06:00 06/07/18 06:08 Temperature Pulse Rate 80 80 Respiratory Rate Blood Pressure Pulse Oximetry 98 06/07/18 07:00 06/07/18 08:00 06/07/18 09:00 Temperature 97.9 F Pulse Rate 93 H 89 98 H Respiratory Rate 18 Blood Pressure 149/76 H Pulse Oximetry 94 L 06/07/18 09:55 06/07/18 10:00 06/07/18 11:00 Temperature Pulse Rate 98 H 95 H 92 H Respiratory Rate 16 Blood Pressure Pulse Oximetry 96 06/07/18 12:00 06/07/18 13:00 06/07/18 15:53 Temperature 98 F Pulse Rate 92 H 66 66 Respiratory Rate 20 20 Blood Pressure 157/70 H Pulse Oximetry 92 L 92 L Intake & Output 06/06/18 06/07/1806/07/18 18:59 06:59 18:59 Intake Total 720 / 720 1385 / 1385 615 / 615 Output Total 700 / 700 500 / 500 Balance 885 / 885 615 / 615 Weight 141.067 kg 140 kg Intake: IV 665 / 665 615 / 615 Maxipime Inj 2,000 MG In NS Inj 190 / 190 100 / 100 100 ML @ 200 mls/hr IV.SIG Q8H [facility] Rx#:[id number] Vancomycin Inj 1,500 MG In NS 475 / 475 515 / 515 Inj 500 ML @ 250 mls/hr IV.SIG Q12H [facility] Rx#:[id number] Oral 720 / 720 720 / 720 Output: Urine 700 / 700 500 / 500 Other: # Bowel Movements 0 Narrative: GENERAL: Patient sitting up on edge of bed. Appears to be breathing more comfortably than yesterday. SKIN: Warm and dry. HEAD: Normocephalic. EYES: No scleral icterus. No injection or drainage. NECK: Supple, trachea midline. No JVD. CARDIOVASCULAR: Regular rate and rhythm without murmurs, gallops, or rubs. RESPIRATORY: Breath sounds decreased on the right. Pleurx catheter in place on the right.. No accessory muscle use. GASTROINTESTINAL: Abdomen soft, non-tender, nondistended. MUSCULOSKELETAL: No cyanosis. Still with +3 edema as yesterday, slightly improved. BACK: Nontender without obvious deformity. No CVA tenderness. Results - Labs CBC & Chem 7: 06/07/18 03:50 06/07/18 03:50 Laboratory Results - last 24 hr 06/06/18 06/06/18 06/06/18 08:57 17:20 21:03 WBC RBC Hgb Hct MCV MCH MCHC RDW Plt Count MPV Neut % (Auto) Lymph % (Auto) [place] % (Auto) Eos % (Auto) Baso % (Auto) Neut # (Auto) Lymph # (Auto) [place] # (Auto) Eos # (Auto) Baso # (Auto) WBC Differential Differential Comment Sodium Potassium Chloride Carbon Dioxide Anion Gap BUN Creatinine Estimated GFR POC Glucose 368 H 368 H Random Glucose Calcium Total Bilirubin AST ALT Alkaline Phosphatase B-Natriuretic Peptide 33 Total Protein Albumin 06/07/18 06/07/18 06/07/18 03:50 03:50 08:08 WBC 9.3 RBC 3.39 L Hgb 8.9 L Hct 28.3 L MCV 83.6 MCH 26.2 L MCHC 31.3 L RDW 15.8 Plt Count 222 MPV 7.8 Neut % (Auto) 91.3 H Lymph % (Auto) 5.3 L [place] % (Auto) 3.3 Eos % (Auto) 0.0 Baso % (Auto) 0.1 Neut # (Auto) 8.5 H Lymph # (Auto) 0.5 L [place] # (Auto) 0.3 Eos # (Auto) 0.0 Baso # (Auto) 0.0 WBC Differential . Differential Comment Auto diff final Sodium 138 Potassium 4.4 Chloride 86 L Carbon Dioxide Greater than 45.0 H Anion Gap 7 BUN 30 H Creatinine 1.25 Estimated GFR 57 L POC Glucose 311 H Random Glucose 260 H D Calcium 9.4 Total Bilirubin 0.4 AST 15 ALT 17 Alkaline Phosphatase 54 B-Natriuretic Peptide Total Protein 7.6 Albumin 2.6 L 06/07/18 13:14 WBC RBC Hgb Hct MCV MCH MCHC RDW Plt Count MPV Neut % (Auto) Lymph % (Auto) [place] % (Auto) Eos % (Auto) Baso % (Auto) Neut # (Auto) Lymph # (Auto) [place] # (Auto) Eos # (Auto) Baso # (Auto) WBC Differential Differential Comment Sodium Potassium Chloride Carbon Dioxide Anion Gap BUN Creatinine Estimated GFR POC Glucose 467 H* Random Glucose Calcium Total Bilirubin AST ALT Alkaline Phosphatase B-Natriuretic Peptide Total Protein Albumin - Imaging Impressions Knee X-Ray 06/06/18 00:00 CONCLUSION: Degenerative changes with trace joint effusion. No fracture. Sign report Assessment and Plan - Plan //NSCLC //Right-sided malignant pleural effusion with indwelling Pleurx catheter. //COPD exacerbation //Hypercapnic respiratory failure //YING //Possible healthcare associated pneumonia. = ABG with PCO2 in the 90s. = Right-sided malignant effusion noted on chest x-ray. = Solu-Medrol, duo nebs, incentive spirometry. = We will order for drainage of right-sided pleural effusion Via Pleurx catheter with fluid analysis. Patient does have tachycardia, tachypnea, borderline elevated white blood cell count will start on broad-spectrum antibiotics. Consult oncology and pulmonary. = 06/07. Respiratory status proving. Will taper down to by mouth prednisone. Continue IV antibiotics. Pulmonology following. Will drain right sided pleural effusion. Discussed with nursing. Appreciate nursing assistance. //Bilateral lower extremity edema with venous stasis cellulitis. BNP not elevated. Elevate the legs. Patient instructed. = 06/07. Appears slightly improved. //NSCLC = patient follows with hospice, however is not "on" hospice = oncology following. Appreciate assistance. Patient still deciding if he wants to do palliative chemotherapy. //DM Dm diet, ISS /HTN. Blood pressure acceptable. Will order hydralazine as needed. //Right knee pain. Appears musculoskeletal. Imaging ordered and pending. //CKD.. Renal function acceptable. //Please see other medical record for patient with first name "Armen". Recent admission last month. Prophylaxis. Heparin. Discussed Condition With: Patient, nurse, pulmonology. Discharge Planning: Home with home health, possibly hospice. PT consulted. We will need oncology and pulmonology clearance.
--- NOTE | 2018-06-07 19:14 | P.PN ---
Subjective Interval history: Has SOB and a cough. no fever. Had been seen by Dr Reeves and chemotherapy may be offered. O2 sat 95 on 3 L Physical Exam Vital signs: Vital Signs 06/06/18 20:00 06/06/18 20:25 06/06/18 20:30 Temperature 98.8 F Pulse Rate 100 H 104 H Respiratory Rate 22 14 Blood Pressure 142/70 H Pulse Oximetry 90 L 93 L 06/06/18 21:00 06/06/18 22:00 06/06/18 23:00 Temperature Pulse Rate 99 H 100 H 87 Respiratory Rate Blood Pressure Pulse Oximetry 06/07/18 00:00 06/07/18 01:00 06/07/18 01:36 Temperature 97.9 F Pulse Rate 86 86 Respiratory Rate 17 Blood Pressure 157/79 H Pulse Oximetry 98 97 06/07/18 01:37 06/07/18 02:00 06/07/18 03:00 Temperature Pulse Rate 70 76 62 Respiratory Rate 18 Blood Pressure Pulse Oximetry 06/07/18 03:25 06/07/18 04:00 06/07/18 05:00 Temperature 97.4 F L Pulse Rate 59 L 86 80 Respiratory Rate 15 20 Blood Pressure 145/89 H Pulse Oximetry 99 06/07/18 06:00 06/07/18 06:08 06/07/18 07:00 Temperature Pulse Rate 80 93 H Respiratory Rate Blood Pressure Pulse Oximetry 98 06/07/18 08:00 06/07/18 09:00 06/07/18 09:55 Temperature 97.9 F Pulse Rate 89 98 H 98 H Respiratory Rate 18 16 Blood Pressure 149/76 H Pulse Oximetry 94 L 96 06/07/18 10:00 06/07/18 11:00 06/07/18 12:00 Temperature 98 F Pulse Rate 95 H 92 H 92 H Respiratory Rate 20 Blood Pressure 157/70 H Pulse Oximetry 92 L 06/07/18 13:00 06/07/18 14:00 06/07/18 15:00 Temperature Pulse Rate 66 95 H 92 H Respiratory Rate Blood Pressure Pulse Oximetry 06/07/18 15:53 06/07/18 16:00 06/07/18 17:00 Temperature 97.7 F Pulse Rate 66 92 H 92 H Respiratory Rate 20 18 Blood Pressure 137/75 Pulse Oximetry 92 L 91 L 06/07/18 18:00 Temperature Pulse Rate 91 H Respiratory Rate Blood Pressure Pulse Oximetry Intake & Output 06/07/18 06/07/18 06/08/18 06:59 18:59 06:59 Intake Total 1385 / 1385 1735 / 1735 Output Total 500 / 500 425 / 425 Balance 885 / 885 1310 / 1310 Weight 140 kg Intake: IV 665 / 665 615 / 615 Maxipime Inj 2,000 MG In NS Inj 190 / 190 100 / 100 100 ML @ 200 mls/hr IV.SIG Q8H [facility] Rx#:[id number] Vancomycin Inj 1,500 MG In NS 475 / 475 515 / 515 Inj 500 ML @ 250 mls/hr IV.SIG Q12H [facility] Rx#:[id number] Oral 720 / 720 1120 / 1120 Output: Urine 500 / 500 425 / 425 Narrative: GENERAL: Patient sitting up and mildly dyspneic. SKIN: Warm and dry. HEAD: Normocephalic. EYES: No scleral icterus. No injection or drainage. NECK: Supple, trachea midline. No JVD. CARDIOVASCULAR: Regular rate and rhythm without murmurs, gallops, or rubs. RESPIRATORY: Breath sounds decreased on the right. Pleurx catheter in place on the right.. No accessory muscle use. GASTROINTESTINAL: Abdomen soft, non-tender, nondistended. MUSCULOSKELETAL: No cyanosis. Still with 2 + edema as yesterday, slightly improved. BACK: Nontender without obvious deformity. No CVA tenderness. Results - Labs CBC & Chem 7: 06/07/18 03:50 06/07/18 03:50 Laboratory Results - last 24 hr 06/06/18 06/07/18 06/07/18 21:03 03:50 03:50 WBC 9.3 RBC 3.39 L Hgb 8.9 L Hct 28.3 L MCV 83.6 MCH 26.2 L MCHC 31.3 L RDW 15.8 Plt Count 222 MPV 7.8 Neut % (Auto) 91.3 H Lymph % (Auto) 5.3 L [place] % (Auto) 3.3 Eos % (Auto) 0.0 Baso % (Auto) 0.1 Neut # (Auto) 8.5 H Lymph # (Auto) 0.5 L [place] # (Auto) 0.3 Eos # (Auto) 0.0 Baso # (Auto) 0.0 WBC Differential . Differential Comment Auto diff final Sodium 138 Potassium 4.4 Chloride 86 L Carbon Dioxide Greater than 45.0 H Anion Gap 7 BUN 30 H Creatinine 1.25 Estimated GFR 57 L POC Glucose 368 H Random Glucose 260 H D Calcium 9.4 Total Bilirubin 0.4 AST 15 ALT 17 Alkaline Phosphatase 54 Total Protein 7.6 Albumin 2.6 L 06/07/18 06/07/18 06/07/18 08:08 13:14 17:49 WBC RBC Hgb Hct MCV MCH MCHC RDW Plt Count MPV Neut % (Auto) Lymph % (Auto) [place] % (Auto) Eos % (Auto) Baso % (Auto) Neut # (Auto) Lymph # (Auto) [place] # (Auto) Eos # (Auto) Baso # (Auto) WBC Differential Differential Comment Sodium Potassium Chloride Carbon Dioxide Anion Gap BUN Creatinine Estimated GFR POC Glucose 311 H 467 H* 394 H Random Glucose Calcium Total Bilirubin AST ALT Alkaline Phosphatase Total Protein Albumin Assessment and Plan - Assessment (1) Carcinoma of lung Code(s): C34.90 - Malignant neoplasm of unspecified part of unspecified bronchus or lung Status: Acute (2) Metastatic carcinoma Code(s): C79.9 - Secondary malignant neoplasm of unspecified site Status: Acute (3) Pulmonary edema Code(s): J81.1 - Chronic pulmonary edema Status: Acute (4) Pleural effusion Code(s): J90 - Pleural effusion, not elsewhere classified Status: Acute (5) COPD (chronic obstructive pulmonary disease) with emphysema Code(s): J43.9 - Emphysema, unspecified Status: Acute (6) CHF (congestive heart failure) Code(s): I50.9 - Heart failure, unspecified Status: Acute (7) Sleep apnea syndrome Code(s): G47.30 - Sleep apnea, unspecified Status: Acute - Plan 1. Will leave on o2 3 L. 2. Nebs qid , duoneb. 3. Continue antibiotics cefipime 4. Cont symbicort 160/4.5 mcg , 2puffs BID 5. Chest Xray, BMP 6. Drain Plur X catheter weekly
[2018-06-07] MEDS: Insulin Detemir Inj 1,000 UNIT/10 ML Vial SQ SCH (21:37)
[2018-06-07] MEDS: predniSONE 20 MG Tablet PO SCH (21:38)
[2018-06-07 22:34] LABS: Lymphocytes,Pleural Fluid 68 %; Monocytes,Pleural Fluid 2 %; Neutrophils,Pleural Fluid 30 %
[2018-06-07 22:37] LABS: RBC,Pleural Fluid 1783 /mm3 (0-0)
[2018-06-08] MEDS ORDERED: Vancomycin Inj 1,750 MG in Sodium Chlor 0.9% Inj 500 ML IV.SIG SCH (03:00)
[2018-06-08 04:45] LABS: Baso % (Auto) 0.1 % (0.0-2.0); Hematocrit 25.9 % (39.0-51.0); Hemoglobin 8.2 gm/dL (13.0-17.0); Lymph # (Auto) 0.7 th/mm3 (1.0-4.8); Mean Corpuscular HGB Conc 31.5 % (32.0-36.0); Mean Corpuscular Hemoglobin 26.2 pg (27.0-34.0); Mean Corpuscular Volume 83.1 fL (80.0-100.0); Mean Platelet Volume 8.1 fL (7.0-11.0); Mono # (Auto) 0.4 th/mm3 (0.0-0.9); Mono % (Auto) 3.9 % (0.0-8.0); Neut # (Auto) 10.3 th/mm3 (1.8-7.7); Platelet Count 229 th/mm3 (150-450); Red Blood Count 3.12 mil/mm3 (4.50-5.90); Red Cell Distribution Width 15.9 % (11.6-17.2); White Blood Count 11.4 th/mm3 (4.0-11.0)
[2018-06-08 05:10] LABS: Albumin 2.4 g/dL (3.4-5.0); Blood Urea Nitrogen 40 mg/dL (7-18); Calcium 9.1 mg/dL (8.5-10.1); Chloride 86 meq/L (98-107); Glomerular Filtration Rate 59 mL/min (>89); Glucose,Random 246 mg/dL (74-106); Phosphorus 2.2 mg/dL (2.5-4.9); Potassium 4.4 meq/L (3.5-5.1); Sodium 137 meq/L (136-145)
[2018-06-08 05:41] LABS: Anion Gap 6 meq/L (5-15)
--- NOTE | 2018-06-08 07:52 | P.PNONC ---
Subjective Interval history: Patient seen and examined, vital signs reviewed sitting. I spoke to the patient about symptoms, he reports some concern about the right- sided chest drain he tells me he had the drain changed yesterday. He tells me after discussing goals of care and treatment options with his and after some more self reflection he wishes to pursue hospice and comfort oriented care. He tells me he wishes to go home to spend a few more weeks with his . Objective Vital Signs/Intake & Output: Vital Signs 06/07/18 08:00 06/07/18 09:00 06/07/18 09:55 Temperature 97.9 F Pulse Rate 89 98 H 98 H Respiratory Rate 18 16 Blood Pressure 149/76 H Pulse Oximetry 94 L 96 06/07/18 10:00 06/07/18 11:00 06/07/18 12:00 Temperature 98 F Pulse Rate 95 H 92 H 92 H Respiratory Rate 20 Blood Pressure 157/70 H Pulse Oximetry 92 L 06/07/18 13:00 06/07/18 14:00 06/07/18 15:00 Temperature Pulse Rate 66 95 H 92 H Respiratory Rate Blood Pressure Pulse Oximetry 06/07/18 15:53 06/07/18 16:00 06/07/18 17:00 Temperature 97.7 F Pulse Rate 66 92 H 92 H Respiratory Rate 20 18 Blood Pressure 137/75 Pulse Oximetry 92 L 91 L 06/07/18 18:00 06/07/18 19:00 06/07/18 20:00 Temperature 97.9 F Pulse Rate 91 H 87 87 Respiratory Rate 20 Blood Pressure 153/72 H Pulse Oximetry 93 L 06/07/18 21:00 06/07/18 21:13 06/07/18 22:00 Temperature Pulse Rate 73 71 86 Respiratory Rate 18 Blood Pressure Pulse Oximetry 06/07/18 23:00 06/07/18 23:53 06/08/18 00:00 Temperature 98.1 F Pulse Rate 97 H 66 Respiratory Rate 22 Blood Pressure 128/60 Pulse Oximetry 97 94 L 06/08/18 01:00 06/08/18 02:00 06/08/18 03:00 Temperature Pulse Rate 81 72 76 Respiratory Rate Blood Pressure Pulse Oximetry 06/08/18 03:25 06/08/18 04:00 06/08/18 05:00 Temperature 98.8 F Pulse Rate 76 76 70 Respiratory Rate 20 24 Blood Pressure 140/70 Pulse Oximetry 90 L 06/08/18 06:00 Temperature Pulse Rate 70 Respiratory Rate Blood Pressure Pulse Oximetry Intake & Output 06/07/18 06/08/18 06/08/18 18:59 06:59 18:59 Intake Total 1735 / 1735 860 / 860 Output Total 465 / 465 850 / 850 Balance 1270 / 1270 10 / 10 Weight 145 kg Intake: IV 615 / 615 100 / 100 Maxipime Inj 2,000 MG In NS Inj 100 / 100 100 / 100 100 ML @ 200 mls/hr IV.SIG Q8H [facility] Rx#:[id number] Vancomycin Inj 1,500 MG In NS 515 / 515 Inj 500 ML @ 250 mls/hr IV.SIG Q12H [facility] Rx#:[id number] Oral 1120 / 1120 760 / 760 Output: Urine 425 / 425 850 / 850 Wound Drainage 40 / 40 RIGHT POST PLEUREX 40 / 40 Other: Date of Last Bowel Movement 06/05/18 # Bowel Movements 0 Result Diagrams: 06/08/18 04:08 06/08/18 04:08 Laboratory Results: Laboratory Results - last 24 hr 06/07/18 06/07/18 06/07/18 08:08 13:14 17:49 WBC RBC Hgb Hct MCV MCH MCHC RDW Plt Count MPV Neut % (Auto) Lymph % (Auto) [place] % (Auto) Eos % (Auto) Baso % (Auto) Neut # (Auto) Lymph # (Auto) [place] # (Auto) Eos # (Auto) Baso # (Auto) WBC Differential Differential Comment Sodium Potassium Chloride Carbon Dioxide Anion Gap BUN Creatinine Estimated GFR POC Glucose 311 H 467 H* 394 H Random Glucose Calcium Phosphorus Albumin Pleural RBC Pleural Nuc Cells Pleural Neutrophils Pleural Lymphocytes Pleural Monocytes Pleural LDH 06/07/18 06/07/18 06/07/18 19:05 19:05 21:32 WBC RBC Hgb Hct MCV MCH MCHC RDW Plt Count MPV Neut % (Auto) Lymph % (Auto) [place] % (Auto) Eos % (Auto) Baso % (Auto) Neut # (Auto) Lymph # (Auto) [place] # (Auto) Eos # (Auto) Baso # (Auto) WBC Differential Differential Comment Sodium Potassium Chloride Carbon Dioxide Anion Gap BUN Creatinine Estimated GFR POC Glucose 333 H Random Glucose Calcium Phosphorus Albumin Pleural RBC 1783 H Pleural Nuc Cells 248 H Pleural Neutrophils 30 Pleural Lymphocytes 68 Pleural Monocytes 2 Pleural LDH 252 06/08/18 06/08/18 04:08 04:08 WBC 11.4 H RBC 3.12 L Hgb 8.2 L Hct 25.9 L MCV 83.1 MCH 26.2 L MCHC 31.5 L RDW 15.9 Plt Count 229 MPV 8.1 Neut % (Auto) 90.0 H Lymph % (Auto) 6.0 L [place] % (Auto) 3.9 Eos % (Auto) 0.0 Baso % (Auto) 0.1 Neut # (Auto) 10.3 H Lymph # (Auto) 0.7 L [place] # (Auto) 0.4 Eos # (Auto) 0.0 Baso # (Auto) 0.0 WBC Differential . Differential Comment Auto diff final Sodium 137 Potassium 4.4 Chloride 86 L Carbon Dioxide Greater than 45.0 H Anion Gap 6 BUN 40 H Creatinine 1.21 Estimated GFR 59 L POC Glucose Random Glucose 246 H Calcium 9.1 Phosphorus 2.2 L Albumin 2.4 L Pleural RBC Pleural Nuc Cells Pleural Neutrophils Pleural Lymphocytes Pleural Monocytes Pleural LDH Medications: Active Medications Generic Name Dose Route Start Last Admin Trade Name Freq PRN Reason Stop Dose Admin Albuterol 2.5 mg 06/06/18 10:49 06/07/18 01:39 Albuterol Neb (Prn) NEB 2.5 mg Q2HR NEB PRN Administration SHORTNESS OF BREATH Albuterol 1 ampul 06/06/18 16:00 06/08/18 03:25 Duoneb Neb (Feroz) NEB 1 ampul Q6HR NEB FEROZ Administration Aspirin 325 mg 06/07/18 09:00 06/07/18 09:16 Aspirin PO 325 mg DAILY FEROZ Administration Budesonide/Formoterol Fumarate 2 puff 06/06/18 21:00 06/07/18 21:37 Symbicort 160/4.5 Mcg Inh INH 2 puff BID FEROZ Administration Bumetanide 1 mg 06/06/18 21:00 06/07/18 21:37 Bumex PO 1 mg BID FEROZ Administration Calcitriol 0.5 mcg 06/07/18 09:00 06/07/18 09:16 Rocaltrol PO 0.5 mcg DAILY FEROZ Administration Heparin Sodium (Porcine) 5,000 units 06/06/18 21:00 06/07/18 21:37 Heparin Inj SQ 5,000 units Q12HR FEROZ Administration Cefepime HCl 2,000 mg/ Sodium 100 mls @ 200 mls/hr 06/06/18 20:00 06/08/18 07 :40 Chloride IV.SIG 200 mls/hr Q8H [facility]Z Infusion Vancomycin HCl 1,750 mg/ 517.5 mls @ 250 mls/hr 06/08/18 03:00 06/08/18 07:39 Sodium Chloride IV.SIG 250 mls/hr Q18H [facility]Z Infusion Insulin Aspart 0 unit 06/06/18 12:00 06/07/18 21:35 Novolog Insulin Correctional Sugar Inj SQ 10 unit ACHS FEROZ Administration Protocol Insulin Detemir 8 unit 06/07/18 21:00 06/07/18 21:37 Levemir Inj SQ 8 unit BID FEROZ Administration Prednisone 30 mg 06/07/18 21:00 06/07/18 21:38 Deltasone PO 30 mg BID FEROZ Administration Sodium Chloride 2 ml 06/06/18 21:00 06/07/18 21:40 Ns Flush IV.FLUSH 2 ml BID FEROZ Administration Spironolactone 50 mg 06/07/18 09:00 06/07/18 09:16 Aldactone PO 50 mg DAILY FEROZ Administration Objective Remarks: GENERAL: Elderly male, sitting up at bedside, he appears to be more comfortable today as far as respiratory status is concerned, he is heavyset, on oxygen. SKIN: Warm and dry. HEAD: Normocephalic. EYES: No scleral icterus. No injection or drainage. NECK: Supple, trachea midline. No JVD or lymphadenopathy. LYMPHATIC: No adenopathy. CARDIOVASCULAR: Regular rate and rhythm without murmurs. RESPIRATORY: Decreased bilateral breath sounds, right greater than left, right- sided chest drain in place. GASTROINTESTINAL: Obese abdomen, abdomen soft, non-tender, nondistended. EXTREMITIES: No cyanosis, or edema. MUSCULOSKELETAL: Adequate muscle tone. NEUROLOGICAL: No obvious focal deficit. Awake, alert, and oriented x3. PSYCHIATRIC: Appropriate mood and affect; insight and judgment normal. Bilateral lower extremity edema. 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 He has been offered systemic chemotherapy for palliation, he was also offered hospice. Patient prefers to pursue hospice. He declines disease directed therapy as far as a cancers concern at this time. He tells me he wishes to have his right-sided chest drain addressed before going home. He had several questions regarding his outpatient medications and wants to know how enrolling on hospice will affect his medications. Recommendations: 1. Metastatic adenocarcinoma of the lung: Patient has requested hospice for end -of-life/comfort oriented care. This is a reasonable option given the metastatic nature of his adenocarcinoma of the lung. He is a suboptimal candidate for aggressive disease directed therapy due to the high risk of treatment associated adverse effects. The patient is cleared to discharge home with hospice from an oncologic standpoint.
[2018-06-08] MEDS: Insulin NovoLOG Aspart Correctional Sugar Inj SQ SCH ×2 (08:22→11:33)
[2018-06-08] MEDS: predniSONE 20 MG Tablet PO SCH (08:23)
[2018-06-08] MEDS: Calcitriol 0.25 MCG Capsule PO SCH (08:23)
[2018-06-08] MEDS: Spironolactone 50 MG Tablet PO SCH (08:24)
[2018-06-08] MEDS: Aspirin 325 MG Tablet PO SCH (08:24)
[2018-06-08] MEDS: Heparin - SQ 10,000 UNITS/ML Vial SQ SCH (08:24)
[2018-06-08] MEDS: Insulin Detemir Inj 1,000 UNIT/10 ML Vial SQ SCH (08:25)
[2018-06-08] MEDS: Budesonide-Formoterol 160/4.5 MCG 6 GM Inhaler INH SCH (08:25)
[2018-06-08 12:03] VITALS: BP 157/83; RESP 16; TEMP 98; O2SAT 95
--- NOTE | 2018-06-08 12:07 | P.PN ---
Subjective Interval history: He has decided on Hospice. On O2 3 L. Will go to hospice care center. Physical Exam Vital signs: Vital Signs 06/07/18 13:00 06/07/18 14:00 06/07/18 15:00 Temperature Pulse Rate 66 95 H 92 H Respiratory Rate Blood Pressure Pulse Oximetry 06/07/18 15:53 06/07/18 16:00 06/07/18 17:00 Temperature 97.7 F Pulse Rate 66 92 H 92 H Respiratory Rate 20 18 Blood Pressure 137/75 Pulse Oximetry 92 L 91 L 06/07/18 18:00 06/07/18 19:00 06/07/18 20:00 Temperature 97.9 F Pulse Rate 91 H 87 87 Respiratory Rate 20 Blood Pressure 153/72 H Pulse Oximetry 93 L 06/07/18 21:00 06/07/18 21:13 06/07/18 22:00 Temperature Pulse Rate 73 71 86 Respiratory Rate 18 Blood Pressure Pulse Oximetry 06/07/18 23:00 06/07/18 23:53 06/08/18 00:00 Temperature 98.1 F Pulse Rate 97 H 66 Respiratory Rate 22 Blood Pressure 128/60 Pulse Oximetry 97 94 L 06/08/18 01:00 06/08/18 02:00 06/08/18 03:00 Temperature Pulse Rate 81 72 76 Respiratory Rate Blood Pressure Pulse Oximetry 06/08/18 03:25 06/08/18 04:00 06/08/18 05:00 Temperature 98.8 F Pulse Rate 76 76 70 Respiratory Rate 20 24 Blood Pressure 140/70 Pulse Oximetry 90 L 06/08/18 06:00 06/08/18 07:00 06/08/18 08:00 Temperature 97.9 F Pulse Rate 70 84 79 Respiratory Rate 16 Blood Pressure 139/71 Pulse Oximetry 90 L 06/08/18 08:58 06/08/18 09:00 06/08/18 10:00 Temperature Pulse Rate 89 97 H 95 H Respiratory Rate 20 Blood Pressure Pulse Oximetry 94 L 06/08/18 11:00 06/08/18 12:00 Temperature 98.0 F Pulse Rate 75 92 H Respiratory Rate 16 Blood Pressure 157/83 H Pulse Oximetry 95 Intake & Output 06/07/18 06/08/18 06/08/18 18:59 06:59 18:59 Intake Total 1735 / 1735 860 / 860 617.5 / 617.5 Output Total 465 / 465 850 / 850 Balance 1270 / 1270 10 / 10 617.5 / 617.5 Weight 145 kg Intake: IV 615 / 615 100 / 100 617.5 / 617.5 Maxipime Inj 2,000 MG In NS Inj 100 / 100 100 / 100 100 / 100 100 ML @ 200 mls/hr IV.SIG Q8H [facility] Rx#:[id number] Vancomycin Inj 1,750 MG In NS 515 / 515 517.5 / 517.5 Inj 500 ML @ 250 mls/hr IV.SIG Q18H [facility] Rx#:[id number] Oral 1120 / 1120 760 / 760 Output: Urine 425 / 425 850 / 850 Wound Drainage 40 / 40 RIGHT POST PLEUREX 40 / 40 Other: Date of Last Bowel Movement 06/05/18 # Bowel Movements 0 Narrative: GENERAL: Patient sitting up and mildly dyspneic. SKIN: Warm and dry. HEAD: Normocephalic. EYES: No scleral icterus. No injection or drainage. NECK: Supple, trachea midline. No JVD. CARDIOVASCULAR: Regular rate and rhythm without murmurs, gallops, or rubs. RESPIRATORY: Breath sounds decreased on the right. Pleurx catheter in place on the right.No accessory muscle use. GASTROINTESTINAL: Abdomen soft, non-tender, nondistended. MUSCULOSKELETAL: No cyanosis. Still with 2 + edema of legs. BACK: Nontender without obvious deformity. No CVA tenderness. Results - Labs CBC & Chem 7: 06/08/18 04:08 06/08/18 04:08 Laboratory Results - last 24 hr 06/07/18 06/07/18 06/07/18 13:14 17:49 19:05 WBC RBC Hgb Hct MCV MCH MCHC RDW Plt Count MPV Neut % (Auto) Lymph % (Auto) [place] % (Auto) Eos % (Auto) Baso % (Auto) Neut # (Auto) Lymph # (Auto) [place] # (Auto) Eos # (Auto) Baso # (Auto) WBC Differential Differential Comment Sodium Potassium Chloride Carbon Dioxide Anion Gap BUN Creatinine Estimated GFR POC Glucose 467 H* 394 H Random Glucose Calcium Phosphorus Albumin Pleural RBC 1783 H Pleural Nuc Cells 248 H Pleural Neutrophils 30 Pleural Lymphocytes 68 Pleural Monocytes 2 Pleural LDH 06/07/18 06/07/18 06/08/18 19:05 21:32 04:08 WBC 11.4 H RBC 3.12 L Hgb 8.2 L Hct 25.9 L MCV 83.1 MCH 26.2 L MCHC 31.5 L RDW 15.9 Plt Count 229 MPV 8.1 Neut % (Auto) 90.0 H Lymph % (Auto) 6.0 L [place] % (Auto) 3.9 Eos % (Auto) 0.0 Baso % (Auto) 0.1 Neut # (Auto) 10.3 H Lymph # (Auto) 0.7 L [place] # (Auto) 0.4 Eos # (Auto) 0.0 Baso # (Auto) 0.0 WBC Differential . Differential Comment Auto diff final Sodium Potassium Chloride Carbon Dioxide Anion Gap BUN Creatinine Estimated GFR POC Glucose 333 H Random Glucose Calcium Phosphorus Albumin Pleural RBC Pleural Nuc Cells Pleural Neutrophils Pleural Lymphocytes Pleural Monocytes Pleural LDH 252 06/08/18 06/08/18 04:08 11:00 WBC RBC Hgb Hct MCV MCH MCHC RDW Plt Count MPV Neut % (Auto) Lymph % (Auto) [place] % (Auto) Eos % (Auto) Baso % (Auto) Neut # (Auto) Lymph # (Auto) [place] # (Auto) Eos # (Auto) Baso # (Auto) WBC Differential Differential Comment Sodium 137 Potassium 4.4 Chloride 86 L Carbon Dioxide Greater than 45.0 H Anion Gap 6 BUN 40 H Creatinine 1.21 Estimated GFR 59 L POC Glucose 368 H Random Glucose 246 H Calcium 9.1 Phosphorus 2.2 L Albumin 2.4 L Pleural RBC Pleural Nuc Cells Pleural Neutrophils Pleural Lymphocytes Pleural Monocytes Pleural LDH Microbiology 06/07/18 19:05 Fluid - Pleural fluid Gram Stain - Final 06/07/18 19:05 Other Fungal Smear - Final No fungal elements seen Assessment and Plan - Assessment (1) Carcinoma of lung Code(s): C34.90 - Malignant neoplasm of unspecified part of unspecified bronchus or lung Status: Acute (2) Metastatic carcinoma Code(s): C79.9 - Secondary malignant neoplasm of unspecified site Status: Acute (3) Pulmonary edema Code(s): J81.1 - Chronic pulmonary edema Status: Acute (4) Pleural effusion Code(s): J90 - Pleural effusion, not elsewhere classified Status: Acute (5) COPD (chronic obstructive pulmonary disease) with emphysema Code(s): J43.9 - Emphysema, unspecified Status: Acute (6) CHF (congestive heart failure) Code(s): I50.9 - Heart failure, unspecified Status: Acute (7) Sleep apnea syndrome Code(s): G47.30 - Sleep apnea, unspecified Status: Acute - Plan 1. Will leave on o2 3 L. 2. Nebs qid , duoneb. 3. D/C IV antibiotics 4. Cont symbicort 160/4.5 mcg , 2puffs BID 5.Transfer to Hospice care. 6. Drain Plur X catheter weekly 7. will see as Op In 3 weeks
--- NOTE | 2018-06-08 12:13 | P.DS ---
Date of admission: 06/06/18 10:45 Primary care physician: No Primary Care Physician Brief History from admission: 68-year-old male with a history of COPD, CHF, CKD, diabetes mellitus, hypertension, non-small cell lung carcinoma with chronic right-sided malignant pleural effusion with Pleurx catheter in place who presents with a 2 day history of progressively worsening shortness of breath, chills. History is limited by shortness of breath. Patient reports chronic chest pain both substernal and right flank. Patient also reports 2 day history of right anterior knee pain worse with movement. Patient has marketed bilateral lower extremity swelling with venous stasis, however says this is chronic for him. He spends most of his time in a chair. DS: Summary Hospital Course: Patient was treated for COPD exacerbation with IV steroids, IV antibiotics with improvement. Chest x-ray showed right pleural effusion with Pleurx drainage catheter. This was drained with a very small amount of fluid consistent with malignant infusion. Oncology was consulted during admission and discussed treatment with him. Patient ultimately opted for discharge to hospice care center. For problem based summary from most recent progress note, please see below. //NSCLC //Right-sided malignant pleural effusion with indwelling Pleurx catheter. //COPD exacerbation //Hypercapnic respiratory failure //YING //Possible healthcare associated pneumonia. = ABG with PCO2 in the 90s. = Right-sided malignant effusion noted on chest x-ray. = Solu-Medrol, duo nebs, incentive spirometry. = We will order for drainage of right-sided pleural effusion Via Pleurx catheter with fluid analysis. Patient does have tachycardia, tachypnea, borderline elevated white blood cell count will start on broad-spectrum antibiotics. Consult oncology and pulmonary. = 06/07. Respiratory status proving. Will taper down to by mouth prednisone. Continue IV antibiotics. Pulmonology following. Will drain right sided pleural effusion. Discussed with nursing. Appreciate nursing assistance. = 06/08. Respiratory status much improved. Further taper prednisone. Patient wishes to discharge to hospice care center. //Bilateral lower extremity edema with venous stasis cellulitis. BNP not elevated. Elevate the legs. Patient instructed. = Continues slow improvement. //NSCLC = patient follows with hospice, however is not "on" hospice = oncology following. Appreciate assistance. Patient still deciding if he wants to do palliative chemotherapy. = Patient has opted for discharge to hospice care center. //DM Dm diet, ISS = Expect hyperglycemia to improve with tapering of prednisone. /HTN. Blood pressure acceptable. Will order hydralazine as needed. //Right knee pain. Appears musculoskeletal. Imaging ordered and pending. //CKD.. Renal function acceptable. //Please see other medical record for patient with first name "Armen". Recent admission last month. Prophylaxis. Heparin. Discharge Planning: Patient has opted to discharge to hospice care center. appreciate oncology, pulmonology assistance. - Time Spent with Patient Total time spent providing and/or coordinating discharge services: Greater than 30 minutes Exam Vital signs: Vital Signs 06/07/18 13:00 06/07/18 14:00 06/07/18 15:00 Temperature Pulse Rate 66 95 H 92 H Respiratory Rate Blood Pressure Pulse Oximetry 06/07/18 15:53 06/07/18 16:00 06/07/18 17:00 Temperature 97.7 F Pulse Rate 66 92 H 92 H Respiratory Rate 20 18 Blood Pressure 137/75 Pulse Oximetry 92 L 91 L 06/07/18 18:00 06/07/18 19:00 06/07/18 20:00 Temperature 97.9 F Pulse Rate 91 H 87 87 Respiratory Rate 20 Blood Pressure 153/72 H Pulse Oximetry 93 L 06/07/18 21:00 06/07/18 21:13 06/07/18 22:00 Temperature Pulse Rate 73 71 86 Respiratory Rate 18 Blood Pressure Pulse Oximetry 06/07/18 23:00 06/07/18 23:53 06/08/18 00:00 Temperature 98.1 F Pulse Rate 97 H 66 Respiratory Rate 22 Blood Pressure 128/60 Pulse Oximetry 97 94 L 06/08/18 01:00 06/08/18 02:00 06/08/18 03:00 Temperature Pulse Rate 81 72 76 Respiratory Rate Blood Pressure Pulse Oximetry 06/08/18 03:25 06/08/18 04:00 06/08/18 05:00 Temperature 98.8 F Pulse Rate 76 76 70 Respiratory Rate 20 24 Blood Pressure 140/70 Pulse Oximetry 90 L 06/08/18 06:00 06/08/18 07:00 06/08/18 08:00 Temperature 97.9 F Pulse Rate 70 84 79 Respiratory Rate 16 Blood Pressure 139/71 Pulse Oximetry 90 L 06/08/18 08:58 06/08/18 09:00 06/08/18 10:00 Temperature Pulse Rate 89 97 H 95 H Respiratory Rate 20 Blood Pressure Pulse Oximetry 94 L 06/08/18 11:00 06/08/18 12:00 Temperature 98.0 F Pulse Rate 75 92 H Respiratory Rate 16 Blood Pressure 157/83 H Pulse Oximetry 95 Intake & Output 06/07/18 06/08/18 06/08/18 18:59 06:59 18:59 Intake Total 1735 / 1735 860 / 860 617.5 / 617.5 Output Total 465 / 465 850 / 850 Balance 1270 / 1270 10 617.5 / 617.5 Weight 145 kg Intake: IV 615 / 615 100 / 100 617.5 / 617.5 Maxipime Inj 2,000 MG In NS Inj 100 / 100 100 / 100 100 / 100 100 ML @ 200 mls/hr IV.SIG Q8H [facility] Rx#:[id number] Vancomycin Inj 1,750 MG In NS 515 / 515 517.5 / 517.5 Inj 500 ML @ 250 mls/hr IV.SIG Q18H [facility] Rx#:[id number] Oral 1120 / 1120 760 / 760 Output: Urine 425 / 425 850 / 850 Wound Drainage 40 / 40 RIGHT POST PLEUREX 40 / 40 Other: Date of Last Bowel Movement 06/05/18 # Bowel Movements 0 Results Procedures completed during hospitalization: Drainage of Pleurx catheter. No invasive treatment however. Labs on day of discharge: Labs from last 24 hours 06/08/18 06/08/18 06/08/18 11:00 04:08 04:08 WBC 11.4 H RBC 3.12 L Hgb 8.2 L Hct 25.9 L MCV 83.1 MCH 26.2 L MCHC 31.5 L RDW 15.9 Plt Count 229 MPV 8.1 Neut % (Auto) 90.0 H Lymph % (Auto) 6.0 L Andrew % (Auto) 3.9 Eos % (Auto) 0.0 Baso % (Auto) 0.1 Neut # (Auto) 10.3 H Lymph # (Auto) 0.7 L Andrew # (Auto) 0.4 Eos # (Auto) 0.0 Baso # (Auto) 0.0 WBC Differential . Differential Comment Auto diff final Sodium 137 Potassium 4.4 Chloride 86 L Carbon Dioxide Greater than 45.0 H Anion Gap 6 BUN 40 H Creatinine 1.21 Estimated GFR 59 L POC Glucose 368 H Random Glucose 246 H Calcium 9.1 Phosphorus 2.2 L Albumin 2.4 L Pleural RBC Pleural Nuc Cells Pleural Neutrophils Pleural Lymphocytes Pleural Monocytes Pleural LDH 06/07/18 06/07/18 06/07/18 21:32 19:05 19:05 WBC RBC Hgb Hct MCV MCH MCHC RDW Plt Count MPV Neut % (Auto) Lymph % (Auto) Andrew % (Auto) Eos % (Auto) Baso % (Auto) Neut # (Auto) Lymph # (Auto) Andrew # (Auto) Eos # (Auto) Baso # (Auto) WBC Differential Differential Comment Sodium Potassium Chloride Carbon Dioxide Anion Gap BUN Creatinine Estimated GFR POC Glucose 333 H Random Glucose Calcium Phosphorus Albumin Pleural RBC 1783 H Pleural Nuc Cells 248 H Pleural Neutrophils 30 Pleural Lymphocytes 68 Pleural Monocytes 2 Pleural LDH 252 06/07/18 06/07/18 17:49 13:14 WBC RBC Hgb Hct MCV MCH MCHC RDW Plt Count MPV Neut % (Auto) Lymph % (Auto) Andrew % (Auto) Eos % (Auto) Baso % (Auto) Neut # (Auto) Lymph # (Auto) Andrew # (Auto) Eos # (Auto) Baso # (Auto) WBC Differential Differential Comment Sodium Potassium Chloride Carbon Dioxide Anion Gap BUN Creatinine Estimated GFR POC Glucose 394 H 467 H* Random Glucose Calcium Phosphorus Albumin Pleural RBC Pleural Nuc Cells Pleural Neutrophils Pleural Lymphocytes Pleural Monocytes Pleural LDH - Impressions ITS Impressions Knee X-Ray 06/06/18 00:00 CONCLUSION: Degenerative changes with trace joint effusion. No fracture. Sign report Chest X-Ray 06/06/18 08:48 CONCLUSION: Right lung airspace disease with underlying vascular congestion and small to moderate pleural effusion Discharge Plan - Discharge Disposition Patient Disposition: 51 Hospice/Med Facility - Discharge Condition Condition: Fair - Discharge Order Discharge Orders: Discharge Order (Routine); Ordered 06/08/18 Ordered By: Solis Germain - Discharge Details Anticipated Discharge Date: 06/08/18 - Physicians Team Primary Care Provider: Primary Care Adore,Beti Attending Provider: Solis Germain Other Providers: Jason Garcia MD ; Khanh Reeves MD
[2018-06-08] MEDS ORDERED: predniSONE 20 MG Tablet PO SCH (12:30)
[2018-06-08 14:01] VITALS: PULSE 88
[2018-06-09] MEDS ORDERED: Pharmacy Ordered Lab Info OTHER ONE (14:45)
== END 2018-06-08 14:21 | disposition hospice, inpatient (51) ==
LOC: NEPC 08:36 → NEDA 10:45 → HCPC 12:41
PROVIDERS: ADMIT Internal Medicine; ATTEND Internal Medicine